=== PATIENT | male | born 1965 | race Caucasian/White ===

== ENCOUNTER 2016-03-12 19:57 | Inpatient (IN) | payer MEDICAID ==
[~2016-03-12] VITALS: Ht 175.3 cm; Wt 75.4 kg
[~2016-03-12 19:57] MED LIST: CARV3.1240 PO; DIGO0.1262 PO; FURO40TA PO; LORA1TAB12 PO; MORP20SO PO; NOR5T GT; PANT1INJ3 IV; PAR20T GT; POTA-167 PO; PROC25SU24 RE; SENN8.6C PO; SPIR25TA89 PO; TRAZADONE; WARF10TA20 PO
[2016-03-12 21:32] LABS: Basophils # (auto) 0.1 uL; Basophils % (auto) 0.4 % (0.0-2.0); DEFINITIVE VIEW TRANSMISSION; Eosinophils # (auto) 0 uL; Hematocrit 39.5 % (41.0-53.0); Hemoglobin 12.6 g/dL (13.5-17.5); Lymphocytes # (auto) 0.8 uL; Lymphocytes % (auto) 4.5 % (10.0-50.0); Mean Corpuscular Hemoglobin 26.2 pg (28.0-32.0); Mean Corpuscular Hgb Conc. 31.8 g/dL (32.0-36.0); Mean Corpuscular Volume 82.5 fL (80.0-100.0); Mean Platelet Volume 8.4 fL (7.4-10.4); Monocytes # (auto) 1.6 uL; Monocytes % (auto) 9.3 % (0.0-12.0); Neutrophils # (auto) 14.4 uL; Neutrophils % (auto) 85.8 % (37.0-80.0); Platelet Count (auto) 216 10^3/uL (140-450); Red Cell Distribution Width 18.3 % (11.6-16.0); White Blood Cell 16.8 10^3/uL (4.4-10.8)
[2016-03-12 21:33] LABS: Albumin 2.7 g/dL (3.4-5.0); Calcium 8.3 mg/dL (8.5-10.1); Magnesium 1.9 mg/dL (1.6-2.6); Potassium 4.3 mmol/L (3.5-5.1)
[2016-03-12 21:36] LABS: Bilirubin, Total 1.8 mg/dL (0.2-1.0); Total Protein 6.3 g/dL (6.4-8.2)
[2016-03-12 21:58] LABS: Lactic Acid 2.4 mmol/L (0.4-2.0)
[2016-03-12 22:00] LABS: REFLEX LACTIC ACID YES OR NO YES
[2016-03-12] MEDS ORDERED: LEVOFLOXACIN 500MG 100 ML IV ONE (22:15)
[2016-03-12] MEDS ORDERED: SODIUM CHLORIDE 0.9% 500 ML IV ONE (22:15)
[2016-03-12 22:16] LABS: B-Type Natriuretic Peptide 1196.31 pg/mL (0-100)
[2016-03-13] MEDS ORDERED: ONDANSETRON HCL 4 MG/2 ML VIAL IV PRN (00:45)
[2016-03-13] MEDS ORDERED: ACETAMINOPHEN 325 MG TAB PO PRN (00:45)
[2016-03-13] MEDS ORDERED: FUROSEMIDE 40 MG/4 ML VIAL IV ONE (00:45)
[2016-03-13] MEDS ORDERED: NITROGLYCERIN 0.4 MG SL TAB SL PRN (00:45)
[2016-03-13] MEDS ORDERED: ALBUMIN 25% 100 ML IV ONE ×2 (00:45→00:50)
[2016-03-13 01:13] LABS: Partial Thromboplastin Time 32.9 sec (22.64-33.71)
[2016-03-13 01:15] LABS: Prothrombin Time 19.9 sec (9.37-12.3)
[2016-03-13 01:16] LABS: INR 1.93 (0.9-1.15)
[2016-03-13] MEDS ORDERED: PERCOT PO (04:15)
[2016-03-13] MEDS ORDERED: RISP2TAB59 PO (04:15)
[2016-03-13] MEDS ORDERED: ALPR0.25 PO (04:15)
[2016-03-13] MEDS ORDERED: ASPI81CH43 PO (04:15)
[2016-03-13] MEDS ORDERED: TRAZ300T13 PO (04:15)
[2016-03-13] MEDS ORDERED: TAM04C PO (04:15)
[2016-03-13] MEDS ORDERED: PANT40TA2 PO (04:15)
[2016-03-13] MEDS ORDERED: METH5TAB2 PO (04:15)
[2016-03-13 05:22] LABS: Urine Blood Negative /uL (Negative); Urine Color Yellow (Yellow); Urine Glucose Normal (Normal); Urine Ketone Negative (Negative); Urine Nitrite Negative (Negative); Urine RBC <1 /hpf (0 - 3); Urine pH 5.5 (5.0-8.0)
[2016-03-13 05:23] LABS: Urine Bilirubin POSITIVE (Negative)
[2016-03-13 08:56] VITALS: BP 94/68
[2016-03-13] MEDS: CARVEDILOL 3.125 MG TAB PO SCH ×2 (10:45→22:00)
[2016-03-13] MEDS: LEVOFLOXACIN 750MG 150 ML IV SCH (10:45)
[2016-03-13] MEDS: PANTOPRAZOLE SODIUM 40 MG/10 ML VIAL IV SCH (10:45)
[2016-03-13] MEDS: SPIRONOLACTONE 25 MG TAB PO SCH (10:45)
[2016-03-13] MEDS: FUROSEMIDE 40 MG TAB PO SCH (10:46)
[2016-03-13] MEDS: DIGOXIN 0.125 MG TAB PO SCH (10:46)
[2016-03-13] MEDS: POTASSIUM CHL 10 Meq TABLET PO SCH (10:46)
[2016-03-13] MEDS: ENOXAPARIN SOD 40 MG/0.4 ML SYRINGE SC SCH (10:46)
[2016-03-13] MEDS: ALPRAZolam 0.5 MG TAB PO SCH ×3 (12:23→22:21)
[2016-03-13] MEDS: MORPHINE SULF INJ 2 MG/ML SYRINGE 1ML IV PRN (13:20)
[2016-03-13] MEDS ORDERED: WARFARIN SODIUM 5 MG TAB PO ONE (17:00)
[2016-03-13] MEDS: HYDROcodone-ACET 5/325MG TAB PO PRN (21:18)
[2016-03-13 21:55] VITALS: BP 92/62
[2016-03-13 22:00] VITALS: BP 92/62
[2016-03-13] MEDS ORDERED: ALPR1TAB7 PO (22:38)
[2016-03-14] VITALS: BP 98/72
[2016-03-14 04:00] VITALS: BP 110/45
[2016-03-14 05:54] LABS: Partial Thromboplastin Time 33.4 sec (22.64-33.71)
[2016-03-14 06:00] LABS: INR 1.56 (0.9-1.15); Prothrombin Time 16.1 sec (9.37-12.3)
[2016-03-14 06:18] LABS: Basophils # (auto) 0 uL; Basophils % (auto) 0.4 % (0.0-2.0); DEFINITIVE VIEW TRANSMISSION; Eosinophils # (auto) 0 uL; Eosinophils % (auto) 0.2 % (0.0-7.0); Hematocrit 33.3 % (41.0-53.0); Hemoglobin 10.6 g/dL (13.5-17.5); Lymphocytes # (auto) 0.8 uL; Lymphocytes % (auto) 8.6 % (10.0-50.0); Mean Corpuscular Hemoglobin 26.3 pg (28.0-32.0); Mean Corpuscular Hgb Conc. 31.8 g/dL (32.0-36.0); Mean Corpuscular Volume 82.7 fL (80.0-100.0); Mean Platelet Volume 8.2 fL (7.4-10.4); Monocytes # (auto) 1.1 uL; Monocytes % (auto) 10.7 % (0.0-12.0); Neutrophils % (auto) 80.1 % (37.0-80.0); Platelet Count (auto) 180 10^3/uL (140-450); Red Cell Distribution Width 17.2 % (11.6-16.0); SUSPECT VIEW TRANSMISSION; White Blood Cell 9.9 10^3/uL (4.4-10.8)
[2016-03-14] MEDS: ALPRAZolam 0.5 MG TAB PO SCH ×4 (06:26→22:05)
[2016-03-14 06:37] LABS: Potassium 4.5 mmol/L (3.5-5.1)
[2016-03-14 06:42] LABS: Albumin 2.5 g/dL (3.4-5.0); BUN/Creatinine Ratio 20.4
[2016-03-14 06:45] LABS: Bilirubin, Total 1.2 mg/dL (0.2-1.0); Total Protein 5.9 g/dL (6.4-8.2)
[2016-03-14 08:00] VITALS: BP 96/71
[2016-03-14] MEDS: FUROSEMIDE 40 MG TAB PO SCH (10:00)
[2016-03-14] MEDS: CARVEDILOL 3.125 MG TAB PO SCH ×2 (10:00→22:40)
[2016-03-14] MEDS: DIGOXIN 0.125 MG TAB PO SCH (10:00)
[2016-03-14] MEDS: LEVOFLOXACIN 750MG 150 ML IV SCH (11:00)
[2016-03-14] MEDS: POTASSIUM CHL 10 Meq TABLET PO SCH (11:17)
[2016-03-14] MEDS: SPIRONOLACTONE 25 MG TAB PO SCH (11:17)
[2016-03-14] MEDS: PANTOPRAZOLE SODIUM 40 MG/10 ML VIAL IV SCH (11:17)
[2016-03-14] MEDS: ENOXAPARIN SOD 40 MG/0.4 ML SYRINGE SC SCH (11:18)
[2016-03-14] MEDS: ALBUTEROL SULF 2.5 MG/0.5ML(0.5%) NEB SOLN NEB PRN ×2 (11:19→19:10)
[2016-03-14 11:51] VITALS: BP 91/71
[2016-03-14] MEDS: HYDROcodone-ACET 5/325MG TAB PO PRN (13:21)
[2016-03-14 16:00] VITALS: BP 107/69
[2016-03-14] MEDS: MORPHINE SULF INJ 2 MG/ML SYRINGE 1ML IV PRN (16:59)
[2016-03-14] MEDS ORDERED: WARFARIN SODIUM 10 MG TAB PO ONE (17:00)
[2016-03-14 20:00] VITALS: BP 115/86
[2016-03-14] MEDS ORDERED: LACTULOSE 20Gm/30ML SOLN PO ONE (22:15)
[2016-03-15] VITALS (7 sets, daily range): BP systolic 100–143; BP diastolic 66–84
[2016-03-15] MEDS ORDERED: traZODone HCL 50 MG TAB PO ONE (02:00)
[2016-03-15] MEDS: ALBUTEROL SULF 2.5 MG/0.5ML(0.5%) NEB SOLN NEB PRN ×2 (02:32→12:17)
[2016-03-15 05:06] LABS: Basophils # (auto) 0.1 uL; Basophils % (auto) 0.6 % (0.0-2.0); DEFINITIVE VIEW TRANSMISSION; Eosinophils # (auto) 0 uL; Eosinophils % (auto) 0.1 % (0.0-7.0); Hematocrit 35.1 % (41.0-53.0); Hemoglobin 11.1 g/dL (13.5-17.5); Lymphocytes # (auto) 0.8 uL; Mean Corpuscular Hemoglobin 25.8 pg (28.0-32.0); Mean Corpuscular Hgb Conc. 31.6 g/dL (32.0-36.0); Mean Corpuscular Volume 81.9 fL (80.0-100.0); Mean Platelet Volume 7.9 fL (7.4-10.4); Monocytes % (auto) 10.9 % (0.0-12.0); Neutrophils % (auto) 79.4 % (37.0-80.0); Platelet Count (auto) 238 10^3/uL (140-450); Red Cell Distribution Width 18.9 % (11.6-16.0); White Blood Cell 8.9 10^3/uL (4.4-10.8)
[2016-03-15 05:21] LABS: INR 1.9 (0.9-1.15); Partial Thromboplastin Time 31.6 sec (22.64-33.71); Prothrombin Time 19.6 sec (9.37-12.3)
[2016-03-15 05:35] LABS: Albumin 2.7 g/dL (3.4-5.0); BUN/Creatinine Ratio 29.5; Calcium 8.4 mg/dL (8.5-10.1); Potassium 4.6 mmol/L (3.5-5.1)
[2016-03-15 05:38] LABS: Bilirubin, Total 1.8 mg/dL (0.2-1.0); Total Protein 6.3 g/dL (6.4-8.2)
[2016-03-15] MEDS: ALPRAZolam 0.5 MG TAB PO SCH ×4 (06:00→22:25)
[2016-03-15] MEDS: PANTOPRAZOLE SODIUM 40 MG/10 ML VIAL IV SCH (09:48)
[2016-03-15] MEDS: LEVOFLOXACIN 750MG 150 ML IV SCH (09:48)
[2016-03-15] MEDS: POTASSIUM CHL 10 Meq TABLET PO SCH (09:48)
[2016-03-15] MEDS: ENOXAPARIN SOD 40 MG/0.4 ML SYRINGE SC SCH (09:48)
[2016-03-15] MEDS: SPIRONOLACTONE 25 MG TAB PO SCH (09:49)
[2016-03-15] MEDS: CARVEDILOL 3.125 MG TAB PO SCH ×2 (09:49→22:46)
[2016-03-15] MEDS: FUROSEMIDE 40 MG TAB PO SCH (09:49)
[2016-03-15] MEDS: DIGOXIN 0.125 MG TAB PO SCH (09:49)
[2016-03-15 12:58] LABS: Urine Bilirubin Negative (Negative); Urine Blood Negative /uL (Negative); Urine Color Yellow (Yellow); Urine Glucose Normal (Normal); Urine Ketone Negative (Negative); Urine Nitrite Negative (Negative); Urine RBC 1 /hpf (0 - 3); Urine pH 5.5 (5.0-8.0)
[2016-03-15] MEDS: HYDROcodone-ACET 5/325MG TAB PO PRN (15:57)
[2016-03-15] MEDS ORDERED: WARFARIN SODIUM 2.5 MG TAB PO ONE (17:00)
[2016-03-16] VITALS (7 sets, daily range): BP systolic 100–118; BP diastolic 69–93
[2016-03-16] MEDS: ALBUTEROL SULF 2.5 MG/0.5ML(0.5%) NEB SOLN NEB PRN (00:25)
[2016-03-16] MEDS: MORPHINE SULF INJ 2 MG/ML SYRINGE 1ML IV PRN (00:55)
[2016-03-16] MEDS: ALPRAZolam 0.5 MG TAB PO SCH ×3 (05:03→17:55)
[2016-03-16 06:16] LABS: INR 2.52 (0.9-1.15)
[2016-03-16] MEDS: LEVOFLOXACIN 750MG 150 ML IV SCH (10:17)
[2016-03-16] MEDS: PANTOPRAZOLE SODIUM 40 MG/10 ML VIAL IV SCH (10:17)
[2016-03-16] MEDS: ENOXAPARIN SOD 40 MG/0.4 ML SYRINGE SC SCH (10:20)
[2016-03-16] MEDS: DIGOXIN 0.125 MG TAB PO SCH (10:21)
[2016-03-16] MEDS: POTASSIUM CHL 10 Meq TABLET PO SCH (10:21)
[2016-03-16] MEDS: SPIRONOLACTONE 25 MG TAB PO SCH (10:22)
[2016-03-16] MEDS: CARVEDILOL 3.125 MG TAB PO SCH (10:23)
[2016-03-16] MEDS: FUROSEMIDE 40 MG TAB PO SCH (10:24)
[2016-03-16] MEDS ORDERED: WARFARIN SODIUM 2.5 MG TAB PO ONE (17:00)
== END 2016-03-16 19:12 | disposition hospice, home (50) | DRG 720 ==
LOC: EDBD 19:57 → EDUNIT# 19:57 → ER 20:34 → TELE 20:35 → DOU IN ICU 03-13 22:00
PROVIDERS: ADMIT Nurse Practitioner; ATTEND Internal Medicine
DX: A41.9 Sepsis, unspecified organism (principal); E43 Unspecified severe protein-calorie malnutrition; I50.43 Acute on chronic combined systolic (congestive) and diastolic (congestive) heart failure; J18.9 Pneumonia, unspecified organism; Z51.5 Encounter for palliative care; J44.0 Chronic obstructive pulmonary disease with (acute) lower respiratory infection; I10 Essential (primary) hypertension; E78.5 Hyperlipidemia, unspecified; D63.8 Anemia in other chronic diseases classified elsewhere; F17.210 Nicotine dependence, cigarettes, uncomplicated; I25.10 Atherosclerotic heart disease of native coronary artery without angina pectoris; I25.5 Ischemic cardiomyopathy; Z80.1 Family history of malignant neoplasm of trachea, bronchus and lung; Z80.3 Family history of malignant neoplasm of breast; Z82.49 Family history of ischemic heart disease and other diseases of the circulatory system; Z83.3 Family history of diabetes mellitus; Z95.5 Presence of coronary angioplasty implant and graft; Z95.0 Presence of cardiac pacemaker; Z98.890 Other specified postprocedural states; Z68.24 Body mass index [BMI] 24.0-24.9, adult
CPT/HCPCS: 36415; 36600; 51702; 71010; 76775; 80053; 80162; 81001; 82805; 83605; 83735; 83880; 84484; 85025; 85610; 85730; 87040; 87081; 87086; 93005; 94640; 96365; 99291; C9113; J1956; J2405

== ENCOUNTER 2016-04-16 21:37 | Inpatient (IN) | payer MEDICAID ==
[~2016-04-16] VITALS: Ht 172.7 cm; Wt 66.5 kg
[~2016-04-16 21:37] MED LIST changes: +ALPR1TAB7 PO; +ASPI81CH43 PO; -FURO40TA PO; -LORA1TAB12 PO; +METH5TAB2 PO; -MORP20SO PO; -NOR5T GT; -PANT1INJ3 IV; +PANT40TA2 PO; -PAR20T GT; +PERCOT PO; -PROC25SU24 RE; +RISP2TAB59 PO; -SENN8.6C PO; +TAM04C PO; +TRAZ300T13 PO; -TRAZADONE; -WARF10TA20 PO
[2016-04-16 21:55] VITALS: BP 109/95
[2016-04-16] MEDS ORDERED: SODIUM CHLORIDE 0.9% 1,000 ML IV ONE ×2 (22:03→22:43)
[2016-04-16 22:14] LABS: Basophils # (auto) 0 uL; Basophils % (auto) 0.4 % (0.0-2.0); DEFINITIVE VIEW TRANSMISSION; Eosinophils # (auto) 0 uL; Eosinophils % (auto) 0.1 % (0.0-7.0); Hematocrit 44.3 % (41.0-53.0); Hemoglobin 13.3 g/dL (13.5-17.5); Lymphocytes % (auto) 12.8 % (10.0-50.0); Mean Corpuscular Hemoglobin 24.6 pg (28.0-32.0); Mean Corpuscular Hgb Conc. 30.1 g/dL (32.0-36.0); Mean Corpuscular Volume 81.5 fL (80.0-100.0); Mean Platelet Volume 8.5 fL (7.4-10.4); Monocytes % (auto) 11.8 % (0.0-12.0); Neutrophils # (auto) 6.1 uL; Neutrophils % (auto) 74.9 % (37.0-80.0); Platelet Count (auto) 180 10^3/uL (140-450); Red Cell Distribution Width 19.9 % (11.6-16.0); White Blood Cell 8.1 10^3/uL (4.4-10.8)
[2016-04-16] MEDS ORDERED: PIPERACILLIN-TAZOB 3.375GM 100 ML IV ONE (22:15)
[2016-04-16] MEDS ORDERED: CLINDAMYCIN 600MG IV 50 ML IV ONE (22:15)
[2016-04-16 22:29] LABS: Partial Thromboplastin Time 29.7 sec (22.64-33.71)
[2016-04-16 22:31] LABS: INR 2.3 (0.9-1.15); Prothrombin Time 23.7 sec (9.37-12.3)
[2016-04-16 22:32] LABS: Albumin 3.7 g/dL (3.4-5.0); BUN/Creatinine Ratio 12.9; Calcium 9.3 mg/dL (8.5-10.1)
[2016-04-16] MEDS ORDERED: NOREPINEPHRINE BITARTRATE 250 ML IV ONE (22:32)
[2016-04-16 22:36] LABS: Bilirubin, Total 1.4 mg/dL (0.2-1.0); Total Protein 8.4 g/dL (6.4-8.2)
[2016-04-16 22:37] LABS: Anisocytosis Slight; Burr Cells FEW; Giant Platelets Few; Hypochromia Slight; Lactic Acid 7.5 mmol/L (0.4-2.0); Ovalocytes FEW; Platelet Estimate Adequate
[2016-04-16 22:42] LABS: Potassium 6.7 mmol/L (3.5-5.1)
[2016-04-16] MEDS ORDERED: ALBUTEROL SULF 2.5 MG/0.5ML(0.5%) NEB SOLN NEB STA (22:43)
[2016-04-16] MEDS ORDERED: SODIUM CHLORIDE 0.9% 250 ML IV ONE (22:43)
[2016-04-16] MEDS ORDERED: DEXTROSE (50%) 50ML SYRG IV ONE (22:45)
[2016-04-16] MEDS ORDERED: SODIUM BICARBONATE 8.4% INJ 50ML SYRINGE IV ONE ×2 (22:45)
[2016-04-16] MEDS ORDERED: CALCIUM GLUC 4.65 MEQ/10ML 4.65 MEQ in SODIUM CHL 0.9% 50 ML IV ONE (22:45)
[2016-04-16] MEDS ORDERED: SODIUM POLYSTYRENE SULF 15GM/60ML SUSP PO ONE (22:45)
[2016-04-16] MEDS ORDERED: InsuLIN REG 1unit/0.01ml Soln (100units/ml) IV ONE (22:45)
[2016-04-16 22:53] LABS: B-Type Natriuretic Peptide 2413.47 pg/mL (0-100)
[2016-04-16 22:54] LABS: Temperature: 22.7 C (20.0-25.0)
[2016-04-16 23:09] LABS: REFLEX LACTIC ACID YES OR NO YES
[2016-04-16] MEDS ORDERED: CALCIUM GLUC 4.65 MEQ/10ML IV ONE (23:10)
[2016-04-16 23:40] VITALS: BP 111/71
[2016-04-17] VITALS (99 sets, daily range): BP systolic 84–124; BP diastolic 54–89
[2016-04-17] MEDS: IPRATROPIUM BROM 0.5 MG/2.5ML INH SOL NEB SCH ×5 (00:32→14:07)
[2016-04-17 00:38] LABS: Lactic Acid 8.2 mmol/L (0.4-2.0)
[2016-04-17 00:39] LABS: REFLEX LACTIC ACID YES OR NO NO
[2016-04-17] MEDS ORDERED: ONDANSETRON HCL 4 MG/2 ML VIAL IV PRN (00:45)
[2016-04-17] MEDS ORDERED: MORPHINE SULF INJ 2 MG/ML SYRINGE 1ML IV PRN ×2 (00:45)
[2016-04-17] MEDS ORDERED: ACETAMINOPHEN 325 MG TAB PO PRN (00:45)
[2016-04-17] MEDS ORDERED: VANCOMYCIN PER PHARMACY 0 MG IV SCH (00:45)
[2016-04-17] MEDS ORDERED: PANTOPRAZOLE SODIUM 40 MG/10 ML VIAL IV ONE (00:45)
[2016-04-17] MEDS ORDERED: NITROGLYCERIN 0.4 MG SL TAB SL PRN (00:45)
[2016-04-17] MEDS ORDERED: IOHEXOL 350 MG/ML 100ML IJ ONE (00:49)
[2016-04-17] MEDS: MIDAZOLAM DRIP 100 mg/100mL NS 100 ML IV SCH ×2 (01:45→15:20)
[2016-04-17] MEDS: NOREPINEPHRINE BITARTRATE 250 ML IV SCH ×2 (02:00→18:03)
[2016-04-17] MEDS ORDERED: VANCOMYCIN 1GM/250ML D5W 250 ML IV ONE (02:00)
[2016-04-17] MEDS ORDERED: ENOXAPARIN SOD 100 MG/1 ML SYRINGE SC ONE (03:15)
[2016-04-17] MEDS: ALBUTEROL SULF 2.5 MG/0.5ML(0.5%) NEB SOLN NEB PRN ×2 (03:55→06:13)
[2016-04-17] MEDS: PIPERACILLIN-TAZOB 3.375GM 100 ML IV SCH ×3 (05:42→18:32)
[2016-04-17] MEDS ORDERED: MORPHINE SULFATE 4 MG/ML SYRG IV PRN (06:15)
[2016-04-17] MEDS ORDERED: FAMOTIDINE (10MG/ML) 2ML VL IV SCH (10:00)
[2016-04-17] MEDS ORDERED: PANTOPRAZOLE SODIUM 40 MG/10 ML VIAL IV SCH (10:00)
[2016-04-17] MEDS: ENOXAPARIN SOD 40 MG/0.4 ML SYRINGE SC SCH (11:10)
[2016-04-17] MEDS: PANTOPRAZOLE SODIUM 40 MG/10 ML VIAL IV SCH (11:10)
[2016-04-17 12:24] LABS: Basophils # (auto) 0 uL; Basophils % (auto) 0.5 % (0.0-2.0); DEFINITIVE VIEW TRANSMISSION; Eosinophils # (auto) 0 uL; Eosinophils % (auto) 0.1 % (0.0-7.0); Hemoglobin 12.1 g/dL (13.5-17.5); Lymphocytes # (auto) 0.9 uL; Lymphocytes % (auto) 9.2 % (10.0-50.0); Mean Corpuscular Hemoglobin 24.6 pg (28.0-32.0); Mean Corpuscular Volume 79.2 fL (80.0-100.0); Mean Platelet Volume 8.9 fL (7.4-10.4); Monocytes # (auto) 1.1 uL; Monocytes % (auto) 11.6 % (0.0-12.0); Neutrophils # (auto) 7.7 uL; Neutrophils % (auto) 78.6 % (37.0-80.0); Platelet Count (auto) 128 10^3/uL (140-450); White Blood Cell 9.8 10^3/uL (4.4-10.8)
[2016-04-17 12:29] LABS: Red Cell Distribution Width 20.1 % (11.6-16.0)
[2016-04-17 12:31] LABS: Anisocytosis Slight; Burr Cells FEW; Hypochromia Moderate; Microcytosis Slight; Ovalocytes FEW; Platelet Estimate Decreased
[2016-04-17 13:03] LABS: Albumin 2.9 g/dL (3.4-5.0); BUN/Creatinine Ratio 18.4; Bilirubin, Total 1.4 mg/dL (0.2-1.0); Calcium 8.8 mg/dL (8.5-10.1); Potassium 4.7 mmol/L (3.5-5.1); Total Protein 6.5 g/dL (6.4-8.2)
[2016-04-17] MEDS: CLOPIDOGREL BISULFATE 75 MG TAB PO SCH (15:12)
[2016-04-17] MEDS: VANCOMYCIN 1GM/250ML D5W 250 ML IV SCH (15:12)
[2016-04-17] MEDS: ASPirin 81 mg TAB PO SCH (15:12)
[2016-04-17] MEDS: FUROSEMIDE 40 MG/4 ML VIAL IV SCH (19:09)
[2016-04-18] VITALS (105 sets, daily range): BP systolic 82–116; BP diastolic 39–82
[2016-04-18] MEDS: PIPERACILLIN-TAZOB 3.375GM 100 ML IV SCH ×4 (00:20→17:56)
[2016-04-18] MEDS: MIDAZOLAM DRIP 100 mg/100mL NS 100 ML IV SCH ×3 (01:34→20:48)
[2016-04-18] MEDS: IPRATROPIUM BROM 0.5 MG/2.5ML INH SOL NEB SCH ×6 (02:20→22:54)
[2016-04-18] MEDS: VANCOMYCIN 1GM/250ML D5W 250 ML IV SCH ×3 (03:10→16:01)
[2016-04-18 03:58] LABS: Albumin 2.4 g/dL (3.4-5.0); Calcium 7.8 mg/dL (8.5-10.1); Potassium 3.5 mmol/L (3.5-5.1)
[2016-04-18 04:00] LABS: BUN/Creatinine Ratio 19.8
[2016-04-18 04:02] LABS: Bilirubin, Total 1.4 mg/dL (0.2-1.0); Total Protein 5.6 g/dL (6.4-8.2)
[2016-04-18] MEDS: FUROSEMIDE 40 MG/4 ML VIAL IV SCH ×2 (05:59→17:55)
[2016-04-18] MEDS: ALBUTEROL SULF 2.5 MG/0.5ML(0.5%) NEB SOLN NEB PRN ×4 (07:19→19:32)
[2016-04-18] MEDS: PANTOPRAZOLE SODIUM 40 MG/10 ML VIAL IV SCH (10:06)
[2016-04-18] MEDS: ENOXAPARIN SOD 40 MG/0.4 ML SYRINGE SC SCH (10:07)
[2016-04-18] MEDS: ASPirin 81 mg TAB PO SCH (10:07)
[2016-04-18] MEDS: CLOPIDOGREL BISULFATE 75 MG TAB PO SCH (10:07)
[2016-04-19] VITALS (97 sets, daily range): BP systolic 62–116; BP diastolic 24–81
[2016-04-19] MEDS: PIPERACILLIN-TAZOB 3.375GM 100 ML IV SCH ×4 (00:21→18:00)
[2016-04-19] MEDS: IPRATROPIUM BROM 0.5 MG/2.5ML INH SOL NEB SCH ×6 (02:07→22:36)
[2016-04-19] MEDS: ALBUTEROL SULF 2.5 MG/0.5ML(0.5%) NEB SOLN NEB PRN ×3 (02:07→22:36)
[2016-04-19] MEDS: VANCOMYCIN 1,250 MG in D5W 5% 250 ML IV SCH ×2 (03:25→17:00)
[2016-04-19 04:17] LABS: Albumin 2.5 g/dL (3.4-5.0); Calcium 7.9 mg/dL (8.5-10.1); Potassium 3.1 mmol/L (3.5-5.1)
[2016-04-19 04:19] LABS: BUN/Creatinine Ratio 18.2
[2016-04-19 04:23] LABS: Basophils # (auto) 0 uL; Basophils % (auto) 0.1 % (0.0-2.0); DEFINITIVE VIEW TRANSMISSION; Eosinophils # (auto) 0.1 uL; Eosinophils % (auto) 1.6 % (0.0-7.0); Hematocrit 41.1 % (41.0-53.0); Hemoglobin 12.5 g/dL (13.5-17.5); Lymphocytes # (auto) 1.2 uL; Lymphocytes % (auto) 17.9 % (10.0-50.0); Mean Corpuscular Hemoglobin 24.1 pg (28.0-32.0); Mean Corpuscular Hgb Conc. 30.5 g/dL (32.0-36.0); Mean Corpuscular Volume 79.2 fL (80.0-100.0); Mean Platelet Volume 9.3 fL (7.4-10.4); Monocytes # (auto) 0.6 uL; Monocytes % (auto) 9.1 % (0.0-12.0); Neutrophils # (auto) 4.9 uL; Neutrophils % (auto) 71.3 % (37.0-80.0); Platelet Count (auto) 160 10^3/uL (140-450); White Blood Cell 6.9 10^3/uL (4.4-10.8)
[2016-04-19 04:33] LABS: Bilirubin, Total 1.6 mg/dL (0.2-1.0)
[2016-04-19 05:23] LABS: Platelet Estimate Adequate
[2016-04-19 05:24] LABS: Anisocytosis Slight; Hypochromia Moderate; Microcytosis Slight; Ovalocytes FEW
[2016-04-19] MEDS ORDERED: POTASSIUM CHL 10% (20 MEQ/15ML) ORAL SOLN ONE (05:31)
[2016-04-19] MEDS: NOREPINEPHRINE BITARTRATE 250 ML IV SCH ×2 (05:40→07:45)
[2016-04-19] MEDS ORDERED: POTASSIUM CHL 10% (20 MEQ/15ML) ORAL SOLN GT ONE (05:45)
[2016-04-19] MEDS: MIDAZOLAM DRIP 100 mg/100mL NS 100 ML IV SCH ×2 (05:45→23:18)
[2016-04-19] MEDS: FUROSEMIDE 40 MG/4 ML VIAL IV SCH ×2 (06:55→19:33)
[2016-04-19] MEDS: ENOXAPARIN SOD 40 MG/0.4 ML SYRINGE SC SCH (10:29)
[2016-04-19] MEDS: CLOPIDOGREL BISULFATE 75 MG TAB PO SCH (10:29)
[2016-04-19] MEDS: PANTOPRAZOLE SODIUM 40 MG/10 ML VIAL IV SCH (10:29)
[2016-04-19] MEDS: ASPirin 81 mg TAB PO SCH (10:29)
[2016-04-19] MEDS ORDERED: POTASSIUM CHLORIDE 40 MEQ, LIDOCAINE 1% (LOCAL ANESTH.) 4 ML in SODIUM CHL 0.9% 250 ML IV ONE (11:45)
[2016-04-19] MEDS: MORPHINE SULF INJ 2 MG/ML SYRINGE 1ML IV PRN ×3 (13:27→19:57)
[2016-04-20] VITALS (96 sets, daily range): BP systolic 70–113; BP diastolic 31–85
[2016-04-20] MEDS: PIPERACILLIN-TAZOB 3.375GM 100 ML IV SCH ×4 (00:11→17:35)
[2016-04-20] MEDS: MORPHINE SULF INJ 2 MG/ML SYRINGE 1ML IV PRN ×3 (00:56→21:09)
[2016-04-20] MEDS: ALBUTEROL SULF 2.5 MG/0.5ML(0.5%) NEB SOLN NEB PRN ×5 (02:39→18:56)
[2016-04-20] MEDS: IPRATROPIUM BROM 0.5 MG/2.5ML INH SOL NEB SCH ×6 (02:39→22:36)
[2016-04-20] MEDS: VANCOMYCIN 1,250 MG in D5W 5% 250 ML IV SCH ×2 (03:15→15:00)
[2016-04-20 03:47] LABS: Basophils # (auto) 0 uL; Basophils % (auto) 0.4 % (0.0-2.0); DEFINITIVE VIEW TRANSMISSION; Eosinophils # (auto) 0.1 uL; Eosinophils % (auto) 1.9 % (0.0-7.0); Hematocrit 40.5 % (41.0-53.0); Hemoglobin 12.2 g/dL (13.5-17.5); Lymphocytes # (auto) 1.3 uL; Mean Corpuscular Hemoglobin 23.8 pg (28.0-32.0); Mean Corpuscular Hgb Conc. 30.2 g/dL (32.0-36.0); Mean Corpuscular Volume 78.9 fL (80.0-100.0); Mean Platelet Volume 8.8 fL (7.4-10.4); Monocytes # (auto) 0.6 uL; Monocytes % (auto) 9.9 % (0.0-12.0); Neutrophils # (auto) 4.2 uL; Neutrophils % (auto) 66.8 % (37.0-80.0); Platelet Count (auto) 171 10^3/uL (140-450); White Blood Cell 6.3 10^3/uL (4.4-10.8)
[2016-04-20 04:06] LABS: Albumin 2.4 g/dL (3.4-5.0); BUN/Creatinine Ratio 14.1; Calcium 8.1 mg/dL (8.5-10.1); Potassium 3.5 mmol/L (3.5-5.1)
[2016-04-20 04:15] LABS: Bilirubin, Total 1.4 mg/dL (0.2-1.0); Total Protein 6.1 g/dL (6.4-8.2)
[2016-04-20 04:29] LABS: Red Cell Distribution Width 20.7 % (11.6-16.0)
[2016-04-20] MEDS: FUROSEMIDE 40 MG/4 ML VIAL IV SCH ×2 (05:37→17:35)
[2016-04-20 05:55] LABS: Anisocytosis Slight; Platelet Estimate Adequate
[2016-04-20 05:56] LABS: Hypochromia Moderate; Microcytosis Slight; Ovalocytes FEW
[2016-04-20] MEDS: ASPirin 81 mg TAB PO SCH (10:25)
[2016-04-20] MEDS: CLOPIDOGREL BISULFATE 75 MG TAB PO SCH (10:25)
[2016-04-20] MEDS: ENOXAPARIN SOD 40 MG/0.4 ML SYRINGE SC SCH (10:25)
[2016-04-20] MEDS: PANTOPRAZOLE SODIUM 40 MG/10 ML VIAL IV SCH (10:25)
[2016-04-20] MEDS: LORazepam 2MG/ML-1ML VIAL IV PRN (20:29)
[2016-04-21] VITALS (89 sets, daily range): BP systolic 77–125; BP diastolic 37–92
[2016-04-21] MEDS: PIPERACILLIN-TAZOB 3.375GM 100 ML IV SCH ×4 (00:21→17:18)
[2016-04-21] MEDS: MIDAZOLAM DRIP 100 mg/100mL NS 100 ML IV SCH (00:44)
[2016-04-21] MEDS: IPRATROPIUM BROM 0.5 MG/2.5ML INH SOL NEB SCH ×7 (02:31→19:30)
[2016-04-21] MEDS: VANCOMYCIN 1,250 MG in D5W 5% 250 ML IV SCH (03:15)
[2016-04-21 03:49] LABS: Basophils # (auto) 0 uL; Basophils % (auto) 0.6 % (0.0-2.0); DEFINITIVE VIEW TRANSMISSION; Eosinophils # (auto) 0.1 uL; Eosinophils % (auto) 1.6 % (0.0-7.0); Hematocrit 40.1 % (41.0-53.0); Hemoglobin 12.3 g/dL (13.5-17.5); Lymphocytes # (auto) 1.4 uL; Lymphocytes % (auto) 20.7 % (10.0-50.0); Mean Corpuscular Hemoglobin 24.1 pg (28.0-32.0); Mean Corpuscular Hgb Conc. 30.6 g/dL (32.0-36.0); Mean Corpuscular Volume 78.6 fL (80.0-100.0); Mean Platelet Volume 8.7 fL (7.4-10.4); Monocytes # (auto) 0.7 uL; Monocytes % (auto) 10.4 % (0.0-12.0); Neutrophils # (auto) 4.6 uL; Neutrophils % (auto) 66.7 % (37.0-80.0); Platelet Count (auto) 181 10^3/uL (140-450); Red Cell Distribution Width 20.9 % (11.6-16.0); White Blood Cell 6.8 10^3/uL (4.4-10.8)
[2016-04-21 04:09] LABS: Albumin 2.6 g/dL (3.4-5.0); BUN/Creatinine Ratio 11.7; Bilirubin, Total 1.4 mg/dL (0.2-1.0); Calcium 8.3 mg/dL (8.5-10.1); Potassium 3.4 mmol/L (3.5-5.1); Total Protein 6.6 g/dL (6.4-8.2)
[2016-04-21] MEDS: MORPHINE SULF INJ 2 MG/ML SYRINGE 1ML IV PRN ×2 (04:37→13:38)
[2016-04-21 05:12] LABS: Anisocytosis Moderate; Platelet Estimate Adequate
[2016-04-21 05:13] LABS: Burr Cells FEW; Hypochromia Moderate; Ovalocytes FEW
[2016-04-21] MEDS: FUROSEMIDE 40 MG/4 ML VIAL IV SCH ×2 (05:16→17:19)
[2016-04-21] MEDS: NOREPINEPHRINE BITARTRATE 250 ML IV SCH (05:45)
[2016-04-21] MEDS: PANTOPRAZOLE SODIUM 40 MG/10 ML VIAL IV SCH (09:11)
[2016-04-21] MEDS: ASPirin 81 mg TAB PO SCH (09:12)
[2016-04-21] MEDS: ENOXAPARIN SOD 40 MG/0.4 ML SYRINGE SC SCH (09:12)
[2016-04-21] MEDS: FLUCONAZOLE 100 MG TAB PO SCH (09:12)
[2016-04-21] MEDS: CLOPIDOGREL BISULFATE 75 MG TAB PO SCH (09:12)
[2016-04-21] MEDS ORDERED: POTASSIUM CHL 20 Meq TABLET PO ONE (10:00)
[2016-04-21] MEDS: risperiDONE 1 MG TAB PO SCH ×2 (11:49→21:53)
[2016-04-21] MEDS: ALPRAZolam 0.5 MG TAB PO SCH ×3 (11:51→21:54)
[2016-04-21] MEDS: LORazepam 2MG/ML-1ML VIAL IV PRN ×2 (20:09)
[2016-04-21] MEDS: VANCOMYCIN 1GM/250ML D5W 250 ML IV SCH (20:13)
[2016-04-21] MEDS ORDERED: ZOLPIDEM TARTRATE 5 MG TAB ONE (21:45)
[2016-04-21] MEDS ORDERED: ZOLPIDEM TARTRATE 5 MG TAB PO PRN (22:00)
[2016-04-22] VITALS (33 sets, daily range): BP systolic 87–116; BP diastolic 45–77
[2016-04-22] MEDS: PIPERACILLIN-TAZOB 3.375GM 100 ML IV SCH ×5 (00:29→23:54)
[2016-04-22] MEDS: MIDAZOLAM DRIP 100 mg/100mL NS 100 ML IV SCH (00:44)
[2016-04-22] MEDS: NOREPINEPHRINE BITARTRATE 250 ML IV SCH (00:44)
[2016-04-22] MEDS: IPRATROPIUM BROM 0.5 MG/2.5ML INH SOL NEB SCH ×5 (02:26→19:20)
[2016-04-22] MEDS: VANCOMYCIN 1GM/250ML D5W 250 ML IV SCH ×2 (02:57→16:17)
[2016-04-22 04:15] LABS: Basophils # (auto) 0 uL; Basophils % (auto) 0.4 % (0.0-2.0); DEFINITIVE VIEW TRANSMISSION; Eosinophils # (auto) 0.1 uL; Eosinophils % (auto) 2.1 % (0.0-7.0); Hematocrit 42.7 % (41.0-53.0); Hemoglobin 13.1 g/dL (13.5-17.5); Lymphocytes # (auto) 1.3 uL; Lymphocytes % (auto) 21.4 % (10.0-50.0); Mean Corpuscular Hemoglobin 24.2 pg (28.0-32.0); Mean Corpuscular Hgb Conc. 30.7 g/dL (32.0-36.0); Mean Platelet Volume 8.6 fL (7.4-10.4); Monocytes # (auto) 0.7 uL; Monocytes % (auto) 10.5 % (0.0-12.0); Neutrophils # (auto) 4.1 uL; Neutrophils % (auto) 65.6 % (37.0-80.0); Platelet Count (auto) 206 10^3/uL (140-450); White Blood Cell 6.3 10^3/uL (4.4-10.8)
[2016-04-22 04:18] LABS: Red Cell Distribution Width 21.4 % (11.6-16.0)
[2016-04-22 04:40] LABS: BUN/Creatinine Ratio 11.4; Bilirubin, Total 1.4 mg/dL (0.2-1.0); Calcium 8.6 mg/dL (8.5-10.1); Potassium 3.5 mmol/L (3.5-5.1); Total Protein 7.3 g/dL (6.4-8.2)
[2016-04-22 05:17] LABS: Anisocytosis Moderate; Hypochromia Moderate; Microcytosis Slight; Ovalocytes FEW; Platelet Estimate Adequate
[2016-04-22] MEDS: FUROSEMIDE 40 MG/4 ML VIAL IV SCH ×2 (06:00→17:57)
[2016-04-22] MEDS: ALPRAZolam 0.5 MG TAB PO SCH ×4 (06:38→21:57)
[2016-04-22] MEDS: LORazepam 2MG/ML-1ML VIAL IV PRN ×2 (08:47→19:36)
[2016-04-22] MEDS: PANTOPRAZOLE SODIUM 40 MG/10 ML VIAL IV SCH (09:28)
[2016-04-22] MEDS: ENOXAPARIN SOD 40 MG/0.4 ML SYRINGE SC SCH (09:29)
[2016-04-22] MEDS: ASPirin 81 mg TAB PO SCH (09:29)
[2016-04-22] MEDS: FLUCONAZOLE 100 MG TAB PO SCH (09:29)
[2016-04-22] MEDS: risperiDONE 1 MG TAB PO SCH ×2 (09:29→21:57)
[2016-04-22] MEDS: CLOPIDOGREL BISULFATE 75 MG TAB PO SCH (09:29)
[2016-04-23] MEDS: VANCOMYCIN 1GM/250ML D5W 250 ML IV SCH (02:30)
[2016-04-23] MEDS: LORazepam 2MG/ML-1ML VIAL IV PRN ×3 (02:31→09:27)
[2016-04-23 05:12] VITALS: BP 99/64
[2016-04-23] MEDS: PIPERACILLIN-TAZOB 3.375GM 100 ML IV SCH (05:42)
[2016-04-23] MEDS: ALPRAZolam 0.5 MG TAB PO SCH (05:42)
[2016-04-23] MEDS: FUROSEMIDE 40 MG/4 ML VIAL IV SCH (05:42)
[2016-04-23] MEDS: IPRATROPIUM BROM 0.5 MG/2.5ML INH SOL NEB SCH ×2 (06:00→10:10)
[2016-04-23 09:10] VITALS: BP 97/68
[2016-04-23] MEDS: PANTOPRAZOLE SODIUM 40 MG/10 ML VIAL IV SCH (09:27)
[2016-04-23] MEDS: FLUCONAZOLE 100 MG TAB PO SCH (09:27)
[2016-04-23] MEDS: ASPirin 81 mg TAB PO SCH (09:28)
[2016-04-23] MEDS: ENOXAPARIN SOD 40 MG/0.4 ML SYRINGE SC SCH (09:33)
[2016-04-23] MEDS: risperiDONE 1 MG TAB PO SCH (09:37)
[2016-04-23] MEDS: CLOPIDOGREL BISULFATE 75 MG TAB PO SCH (09:38)
[2016-04-23 13:08] VITALS: BP 97/68
[2016-04-23 14:19] VITALS: BP 91/69
== END 2016-04-23 14:00 | disposition hospice, home (50) | DRG 194 ==
LOC: EDBD 21:37 → ER 21:39 → OVERFLOW 21:40 → ICU WEST 04-17 01:55 → TELE-EAST 04-22 10:17
PROVIDERS: ADMIT Nurse Practitioner; ATTEND Internal Medicine
PROC: 5A1945Z Respiratory Ventilation, 24-96 Consecutive Hours (ICD-10-PCS; principal; 2016-04-16)
PROC: 0BH17EZ Insertion of Endotracheal Airway into Trachea, Via Natural or Artificial Opening (ICD-10-PCS; 2016-04-16)
DX: I11.0 Hypertensive heart disease with heart failure (principal); J96.20 Acute and chronic respiratory failure, unspecified whether with hypoxia or hypercapnia; G93.41 Metabolic encephalopathy; J18.9 Pneumonia, unspecified organism; E44.0 Moderate protein-calorie malnutrition; J44.9 Chronic obstructive pulmonary disease, unspecified; I42.9 Cardiomyopathy, unspecified; Z99.81 Dependence on supplemental oxygen; F17.210 Nicotine dependence, cigarettes, uncomplicated; E78.5 Hyperlipidemia, unspecified; E87.5 Hyperkalemia; I25.10 Atherosclerotic heart disease of native coronary artery without angina pectoris; I50.9 Heart failure, unspecified; Z66 Do not resuscitate; Z80.1 Family history of malignant neoplasm of trachea, bronchus and lung; Z80.3 Family history of malignant neoplasm of breast; Z82.49 Family history of ischemic heart disease and other diseases of the circulatory system; I25.2 Old myocardial infarction; Z83.3 Family history of diabetes mellitus; Z95.810 Presence of automatic (implantable) cardiac defibrillator; Z98.61 Coronary angioplasty status
CPT/HCPCS: 31500; 36415; 36600; 51702; 70450; 71010; 71275; 80053; 80202; 82805; 82962; 83605; 83735; 83880; 84132; 84484; 85025; 85379; 85610; 85730; 87040; 87070; 87081; 87205; 93005; 93306; 93926; 94002; 94003; 94640; 96361; 96365; 96367; 96375; 97001; 99291; A4565; C9113; J1815; J2001; J2543; J3490; J7060